=== PATIENT | female | born 1960 | race Caucasian/White ===

== ENCOUNTER 2024-02-13 06:25 | Day surgery (SDC) | payer OTHER ==
[2024-02-11 11:20] VITALS: BP 134/86
[~2024-02-13] VITALS: Ht 157.5 cm; Wt 95.3 kg
[~2024-02-13 06:25] MED LIST: ANASTROZOLE1 MG PO; CALTRATE 600 +1 EAC1 PO; CLONAZEPAM0.5 M1 PO; FOLIC ACID0.8 M1 PO; GABAPENTIN400 MG PO; LIPITOR20 MG PO; METFORMIN HCL500 M3 PO; METHOTREXATE2.5 MG PO; PLAVIX75 MG PO; PREVACID15 M1 PO; SYNTHROID100 MCG PO; TARKA; ZEPBOUND2.5 MG/0.5
[2024-02-13] MEDS ORDERED: CHLORHEXIDINE GLUCONATE 120 ML BOTTLE TOP ONE (09:09)
[2024-02-13] MEDS ORDERED: CEFAZOLIN SODIUM 1,000 MG VIAL ONE (09:09)
[2024-02-13] MEDS ORDERED: MORPHINE SULFATE 2 MG/ML CARTRIDGE IV ONE (12:20)
== END 2024-02-13 14:55 | disposition home or self-care (01) ==
LOC: CIR.AMB 06:25
PROVIDERS: ATTEND Surgery
DX: C50.511 Malignant neoplasm of lower-outer quadrant of right female breast (principal); R59.0 Localized enlarged lymph nodes; Z91.040 Latex allergy status; I25.10 Atherosclerotic heart disease of native coronary artery without angina pectoris; I10 Essential (primary) hypertension; J45.909 Unspecified asthma, uncomplicated; E11.9 Type 2 diabetes mellitus without complications; E03.9 Hypothyroidism, unspecified
CPT/HCPCS: 19301; 38525; A9541; L8699